=== PATIENT | female | born 1955 | race Caucasian/White ===

== ENCOUNTER → 2018-03-04 10:08 | Outpatient (CLI) | payer BC ==
[2016-06-05 12:53] VITALS: BMI 23.7
[~2018-03-04 10:08] MED LIST: ATARAX 25 MG TA25 MG PO; COLCRYS0.6 MG PO; ESTRACE1 MG PO; NITROSTAT0.4 MG SL; ONDANSETRON4 MG/2 M3 PO; PROMETRIUM200 MG PO; PROTONIX40 MG PO; RESTORIL15 MG PO; SYNTHROID25 MCG PO; TRIAMCINOLONE A60 M1 TP; ULORIC40 MG PO; ZANTAC150 MG PO
== END | disposition home or self-care (01) ==
LOC: D.LAB 10:08
DX: R31.29 Other microscopic hematuria (principal)

== ENCOUNTER → 2018-05-07 11:39 | Outpatient (CLI) | payer BC ==
[2016-06-05 12:53] VITALS: BMI 23.7
== END | disposition home or self-care (01) ==
LOC: D.US 11:30
DX: R60.0 Localized edema (principal)

== ENCOUNTER → 2019-03-03 13:58 | Outpatient (CLI) | payer BC ==
[2016-06-05 12:53] VITALS: BMI 23.7
== END | disposition home or self-care (01) ==
LOC: D.CT 13:30
PROVIDERS: ATTEND Family Medicine
DX: I73.9 Peripheral vascular disease, unspecified (principal); R51 Headache

== ENCOUNTER → 2020-03-20 18:31 | Outpatient (CLI) | payer BC ==
[2016-06-05 12:53] VITALS: BMI 23.7
== END | disposition home or self-care (01) ==
LOC: D.MAMMO 13:00
PROVIDERS: ATTEND Clinical Nurse Specialist Family Health
DX: Z12.31 Encounter for screening mammogram for malignant neoplasm of breast (principal)

== ENCOUNTER 2020-05-25 14:45 | Emergency (ER) | payer BC ==
[~2020-05-25] VITALS: Ht 175.3 cm; Wt 68.2 kg
[2020-05-25 14:55] VITALS: Ht 175.3 cm; Wt 68.2 kg
[2020-05-25] MEDS ORDERED: TORADOL10 MG PO (16:38)
[2020-05-25 16:49] VITALS: BP 145/75
== END 2020-05-25 16:49 | disposition home or self-care (01) ==
LOC: D.ER 14:45
DX: S16.1XXA Strain of muscle, fascia and tendon at neck level, initial encounter (principal); M17.12 Unilateral primary osteoarthritis, left knee; M48.02 Spinal stenosis, cervical region; R51 Headache; M54.9 Dorsalgia, unspecified; M79.641 Pain in right hand; V89.2XXA Person injured in unspecified motor-vehicle accident, traffic, initial encounter; Y93.9 Activity, unspecified; Y92.9 Unspecified place or not applicable

== ENCOUNTER → 2020-06-04 10:59 | Outpatient (CLI) | payer MEDICAID ==
[2020-05-25 14:55] VITALS: BMI 22.2
[~2020-06-04 10:59] MED LIST changes: +TORADOL10 MG PO
== END | disposition home or self-care (01) ==
LOC: D.CT 10:59
PROVIDERS: ATTEND Family Medicine
DX: H53.8 Other visual disturbances (principal)